=== PATIENT | male | born 1990 | race Two or more races ===

== ENCOUNTER 2021-11-17 16:45 | Emergency (ER) | payer MEDICAID, OTHER ==
[~2021-11-17] VITALS: Ht 182.9 cm; Wt 85.0 kg
[2021-11-17 17:29] VITALS: BP 117/74
[2021-11-17] MEDS ORDERED: IBUP600T27 PO (17:51)
[2021-11-17] MEDS ORDERED: AMOX500T86 PO (17:51)
[2021-11-17] MEDS ORDERED: TETANUS-DIPTH-ACEL PERTUSSIS 0.5ML SYR Tdap IM ONE (18:00)
[2021-11-17] MEDS ORDERED: CEPH-509 PO (18:21)
== END 2021-11-17 18:26 | disposition home or self-care (01) ==
LOC: ER 16:45
DX: S51.832A Puncture wound without foreign body of left forearm, initial encounter (principal); S51.852A Open bite of left forearm, initial encounter; J45.909 Unspecified asthma, uncomplicated; F17.210 Nicotine dependence, cigarettes, uncomplicated; Z79.1 Long term (current) use of non-steroidal anti-inflammatories (NSAID); Z79.2 Long term (current) use of antibiotics; W54.0XXA Bitten by dog, initial encounter; Y93.89 Activity, other specified; Y92.89 Other specified places as the place of occurrence of the external cause; Y99.8 Other external cause status
CPT/HCPCS: 90471; 90715

== ENCOUNTER 2021-12-12 15:56 | Emergency (ER) | payer MEDICAID ==
[~2021-12-12] VITALS: Ht 180.3 cm; Wt 89.9 kg
[~2021-12-12 15:56] MED LIST: CEPH-509 PO; IBUP600T27 PO
[2021-12-12] MEDS ORDERED: CEPH-509 PO (17:02)
[2021-12-12 17:23] VITALS: BP 113/74
== END 2021-12-12 17:25 | disposition home or self-care (01) ==
LOC: ER 15:56
DX: L03.113 Cellulitis of right upper limb (principal); T63.441A Toxic effect of venom of bees, accidental (unintentional), initial encounter; Y92.89 Other specified places as the place of occurrence of the external cause